=== PATIENT | female | born 1965 | race Caucasian/White ===

== ENCOUNTER → 2017-04-22 | Outpatient (CLI) | payer OTHER ==
[2017-04-22 14:35] LABS: HEMOGLOBIN 7.4 gm/dl (12.3-15.3); RED BLOOD COUNT 2.45 M/UL (4.00-5.10); WHITE BLOOD COUNT 11.3 K/UL (4.5-11.0)
== END ==
LOC: CT 14:02
PROVIDERS: Internal Medicine Hematology & Oncology
DX: D47.1 Chronic myeloproliferative disease (principal); D72.829 Elevated white blood cell count, unspecified; D50.9 Iron deficiency anemia, unspecified; R16.0 Hepatomegaly, not elsewhere classified; R59.0 Localized enlarged lymph nodes
CPT/HCPCS: 36415; 74160; 80053; 85025; J7050; Q9962

== ENCOUNTER → 2017-05-10 | Outpatient (CLI) | payer OTHER | LOC: KOH-I 05-06 11:30 → MRI 09:52 | DX: D47.1 Chronic myeloproliferative disease (principal); D72.829 Elevated white blood cell count, unspecified; D50.9 Iron deficiency anemia, unspecified; D64.9 Anemia, unspecified; D47.3 Essential (hemorrhagic) thrombocythemia; E11.9 Type 2 diabetes mellitus without complications; I10 Essential (primary) hypertension; R22.1 Localized swelling, mass and lump, neck; R16.0 Hepatomegaly, not elsewhere classified; R59.0 Localized enlarged lymph nodes; K80.20 Calculus of gallbladder without cholecystitis without obstruction | CPT/HCPCS: 36415; 74183; 82565; 84520; A9577; J7050 ==